=== PATIENT | male | born 1970 | race Asian ===

== ENCOUNTER 2019-04-20 11:47 | Emergency (ER) | payer OTHER ==
[~2019-04-20] VITALS: Ht 170.2 cm; Wt 77.1 kg
[2019-04-20 11:47] VITALS: BP 136/95
--- NOTE | 2019-04-20 11:47 | NUR ---
Patient BIBA ACLS accompanied by Nay LUTHER, transferred to bed 10. Dr. Junior and RN evaluating patient at bedside.
[2019-04-20] MEDS ORDERED: NACL 0.9% 1,000 ML IV ONE (12:00)
--- NOTE | 2019-04-20 12:00 | NUR ---
PT IS NOT HOMELESS, LIVES WITH HIS SISTER
--- NOTE | 2019-04-20 12:05 | NUR ---
KERI FROM HOME, FOUND BY HIS SISTER, PT STATES HE TOOK AEROSOL RAID BECAUSE HE WANTS TO END HIS LIFE. PT STATES "I CAN'T DO IT ANYMORE. I CAN'T HANDLE IT." PT C/O BURNING SENSATION TO THROAT, NO ACTIVE VOMITING NOTED. PT AOX4 WITH FOAM NOTED TO MOUTH; PT PLACED ON 5150 BY RAUL ODBBINS
--- NOTE | 2019-04-20 12:09 | NUR ---
PHLEB at bedside for blood draw.
--- NOTE | 2019-04-20 12:15 | NUR ---
CONTACTED POISON CONTROL, ADVISED TO MONITOR FOR SEIZURES.
[2019-04-20 12:18] LABS: BASOPHILS % (AUTO) 0.1 % (0.0-2.0); HEMATOCRIT 45.9 % (36-52); HEMOGLOBIN 15.3 g/dL (12.0-18.0); LYMPHOCYTES # (AUTO) 0.6 K/uL (2.0-11.5); LYMPHOCYTES % (AUTO) 3.3 % (20.5-51.1); MEAN CORPUSCULAR HEMOGLOBIN 30 pg (27-31); MEAN CORPUSCULAR HGB CONC 33 g/dL (33-37); MEAN CORPUSCULAR VOLUME 88.6 fL (80-94); MONOCYTES # (AUTO) 1.5 K/uL (0.8-1.0); MONOCYTES % (AUTO) 8.5 % (1.7-9.3); NEUTROPHILS # (AUTO) 15.8 K/uL (1.8-7.7); NEUTROPHILS % (AUTO) 88.1 % (42.2-75.2); PLATELET COUNT (AUTO) 398 K/uL (140-450); RED BLOOD CELL COUNT(AUTO) 5.19 MIL/uL (4.20-6.10); RED CELL DISTRIBUTION WIDTH 13.1 % (11.6-13.7); WHITE BLOOD COUNT (AUTO) 17.9 K/uL (4.8-10.8)
[2019-04-20 12:25] LABS: BARBITURATE, URINE NEG. ng/ml (NEG <=200); BENZODIAZEPINE, URINE POS. ng/mL (NEG <=200); CANNABINOID, URINE NEG. ng/mL (NEG <=50); COCAINE, URINE NEG. ng/mL (NEG <=300); OPIATE, URINE NEG. ng/mL (NEG <=2000); PHENCYCLIDINE SCREEN,URINE NEG. ng/mL (NEG <=25)
[2019-04-20 12:46] LABS: ANION GAP 21.8 (8-16); CARBON DIOXIDE 21.4 mmol/L (21-32); CHLORIDE 103 mmol/L (98-107); GFR ARICAN-AMERICAN 46 mL/min (>90); GLUCOSE 174 mg/dL (74-106); POTASSIUM 3.2 mmol/L (3.5-5.1); SODIUM SERUM 143 mmol/L (136-145); UREA NITROGEN, BLOOD 16 mg/dL (7-18)
--- NOTE | 2019-04-20 12:50 | NUR ---
sitter remains at bedside---pt able to hold conversation bathroom offered , pt denied at this time---requested h20 and was provided orville lewis sitting at this time
[2019-04-20 12:55] LABS: ALBUMIN 3.6 g/dL (3.4-5.0); ASPARTATE AMINOTRANSFERASE 14 U/L (15-37); TOTAL BILIRUBIN 0.5 mg/dL (0.0-1.0)
[2019-04-20 12:57] LABS: SALICYLATE < 2.8 mg/dL (2.8-20.0)
--- NOTE | 2019-04-20 13:00 | NUR ---
PT RESTING IN BED, AROUSABLE TO VERBAL STIMULI
[2019-04-20 13:13] LABS: ACETAMINOPHEN < 0.5 ug/ml (10-30)
[2019-04-20] MEDS ORDERED: POTASSIUM CHLORIDE 10 MEQ TABER PO ONE (13:55)
--- NOTE | 2019-04-20 14:04 | NUR ---
SISTER AT BEDSIDE : CHHAYA [phone]
--- NOTE | 2019-04-20 14:41 | NUR ---
SPOKE WITH TIFF FROM [place] REGARDING PT STATUS.
--- NOTE | 2019-04-20 15:32 | NUR ---
ORDERED PT LUNCH TRAY
--- NOTE | 2019-04-20 16:07 | NUR ---
PT ATE LUNCH, HE IS ASLEEP AT THIS TIME, AROUSABLE TO VERBAL STIMULI
[2019-04-20] MEDS ORDERED: KETOROLAC 30 MG/ML VIAL IVP ONE (16:55)
--- NOTE | 2019-04-20 17:05 | NUR ---
Yandy jara in [facility] - 04/20/19 at 1707 by CARTER SPOKE WITH HECTOR FROM POISON CONTROL IN REGARDS TO AN UPDATE ON PT CONDITION, PER HECTOR HE WILL SUBMIT A PESTICIDE REPORT ON HIS END.
--- NOTE | 2019-04-20 17:07 | NUR ---
SPOKE WITH HECTOR FROM POISON CONTROL IN REGARDS TO AN UPDATE ON PT CONDITION, PER HECTOR HE WILL SUBMIT A PESTICIDE REPORT ON HIS END.
--- NOTE | 2019-04-20 17:31 | NUR ---
PT SITTING UP. PROVIDED FOOD TRAY. SISTER AT BEDSIDE. SAFETY ENSURED. 1:1 SITTER AT BEDSIDE.
--- NOTE | 2019-04-20 17:32 | NUR ---
SPOKE WITH STEVIE DUPREE FROM [facility] TO GIVE REPORT. SHE WILL GET IN TOUCH WITH "BED FINDERS" AND THEY WILL CONTACT US TO [facility]
--- NOTE | 2019-04-20 18:08 | NUR ---
PT BELONGINGS SENT WITH SISTER PER PT REQUEST
[2019-04-20 18:59] VITALS: BP 127/90
--- NOTE | 2019-04-20 19:01 | NUR ---
Patient to be transferred to [facility]. Is being transferred due to 51/50 hold. Receiving facility has accepting physician and available space. ER physician has signed transfer form. Patient or responsible constitution party has agreed to transfer and signed form. Patient belongings inventoried and will be sent with patient. Copy of nursing notes, lab reports, EKG, Physicians Orders and X-rays to be sent with patient. Report called to joshua Santos at receiving facility. [facility] ambulance service has been called for transfer.
== END 2019-04-20 19:01 | disposition short-term general hospital (02) ==
LOC: MED 11:47
DX: T65.892A Toxic effect of other specified substances, intentional self-harm, initial encounter (principal); E87.6 Hypokalemia; F41.9 Anxiety disorder, unspecified; Y92.89 Other specified places as the place of occurrence of the external cause
CPT/HCPCS: 36415; 80053; 80305; 85025; 96374; 99285; G0480; G0482; J1885; J7030